=== PATIENT | female | born 1975 | race Caucasian/White ===

== ENCOUNTER → 2021-10-27 | Day surgery (SDC) | payer OTHER ==
[~2021-10-27] VITALS: Ht 167.6 cm; Wt 64.4 kg
[~2021-10-27] MED LIST: AMOXICILLIN500 MG PO; CYCLOBENZAPRINE5 MG PO; DICLOFENAC SODI75 MG PO; ESTRADIOL1 MG PO; OXYCODONE-ACET1 EAC1 PO; VITAMIN D3250 MC2 PO
[2021-10-27 11:22] LABS: BASOPHIL 0.6 % (0-2); EOSINOPHIL 2.7 % (0-5); HCT 41.9 % (37.0-47.0); HGB 14.1 g/dl (12.5-16.0); LYMPHOCYTE 33.7 % (15-48); MCH 30.7 pg (25.0-31.0); MCHC 33.7 g/dL (32.0-36.0); MCV 91.3 fL (78.0-100.0); MONOCYTE 6.2 % (0-12); MPV 9.7 fL (6.0-9.5); NEUTROPHIL 56.6 % (41-80); NRBC 0; PLT 179 K/uL (150-400); RBC 4.59 M/uL (4.20-5.40); RDW 12.6 % (11.5-14.0); WBC 6.3 K/uL (4.0-10.5)
== END | disposition home or self-care (01) ==
LOC: FAS 10:32
PROVIDERS: Oral & Maxillofacial Surgery
DX: K02.9 Dental caries, unspecified (principal); K04.7 Periapical abscess without sinus; G89.29 Other chronic pain; F41.8 Other specified anxiety disorders; Z88.4 Allergy status to anesthetic agent; Z88.5 Allergy status to narcotic agent
CPT/HCPCS: D7140; D7210; 36415; 85025; J1100; J1170; J1885; J2250; J2370; J2405; J2704; J3010; J7120